=== PATIENT | male | born 1955 | race Caucasian/White ===

== ENCOUNTER 2021-02-24 09:19 | Outpatient (REF) | payer MEDICARE, SELFPAY ==
--- NOTE | 2021-02-24 16:40 | MHC.AU.ANR ---
Adult Audiological Evaluation Date of Visit: 02/24/21 Reason for Appointment: Audiological evaluation due to concern for decreased hearing. Mr. Wilhelm reports a gradual decrease in hearing that he first noticed 5 years ago. He states that he was previously test and diagnosed with hearing loss, and that he had purchased [id number] hearing aids which helped. He notes that he had seen ENT Dr. Fred Harrington ~20 years ago and he noted exostoses in both ears but did not recommend surgery to remove them. Mr. Wilhelm reports constant, bilateral tinnitus that he is typically able to ignore. 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 Does patient feel they have a hearing loss?: Yes If Yes, Which Ear?: Both Ears When Was Hearing Difficulty First Noticed?: ~ 5 years ago Has hearing been tested previously?: Yes Previous Hearing Test Results: [facility], 10 years ago. Results not available for review Hearing Handicap Inventory: HHIE SCORE: 28 Based on HHIE score, patient has: Severe perceived hearing handicap Ear History: Bothersome Tinnitus/Ringing/Noises in Ears: Both Ears Medical History: Medical History (Other): Seasonal allergies Medication List: Irbesartan, doxazosin Otoscopy: Right Ear: Occluding wax removed w/ suction to reveal 3 partially occluding exostoses Left Ear: Clear canal with 1 non-occluding exostosis Tympanometry: Tympanometry performed due to: To assess integrity of the middle ear system Right Ear: Could Not Obtain Seal Left Ear: Normal Middle Ear System (Type A) Hearing Evaluation: Transducer(s) Used: Insert Earphones, Bone Conduction Method: Conventional Audiometry Stimuli Used: Pure Tones Right Ear: Description of Hearing: Normal hearing from 250-3000 Hz, sloping to a moderate sensorineural hearing loss from 9581-1062 Hz. Left Ear: Description of Hearing: Normal hearing from 250-2000 Hz, sloping to a mild to moderate sensorineural hearing loss from 5010-2471 Hz. Hearing in the left ear is 30 dBHL worse than the right ear at 3000 Hz. Speech Recognition Threshold (SRT): Method Used: Monitored Live Voice Stimuli Used: Spondee Words Right Ear: 15 dBHL Left Ear: 10 dBHL Word Discrimination: Method: Recorded Lists Word Lists Used: NU-6 Right Ear: 100% at 60 dBHL Left Ear: 100% at 60 dBHL Recommendations: Audiological re-evaluation in one year. Referral to Ear, Nose, and Throat is recommended due to asymmetric thresholds and significant exostoses in the right ear. Patient is a borderline candidate for amplification and is not interested in pursuing hearing aids at this time. Diagnosis: Primary Diagnosis: H90.3 Bilateral Sensorineural Hearing Loss Secondary Diagnosis: H93.13 Tinnitus, Bilateral Services Performed: Services Performed: Comprehensive Audiological Evaluation (CPT 74730) Tympanometry (CPT 65558) Signature: Provider: Bertin Prasad, CCC-A
== END 2021-02-24 09:20 | disposition home or self-care (01) ==
LOC: HO.SH 09:19
PROVIDERS: Visit Provider Internal Medicine
DX: H90.3 Sensorineural hearing loss, bilateral (principal); H93.13 Tinnitus, bilateral
CPT/HCPCS: 92557; 92567

== ENCOUNTER 2021-02-24 10:28 | Outpatient (REF) | payer SELFPAY | END 2021-02-24 10:29 | disposition home or self-care (01) | LOC: HO.HAP 10:28 | PROVIDERS: Visit Provider Internal Medicine | DX: Z46.1 Encounter for fitting and adjustment of hearing aid (principal); H90.3 Sensorineural hearing loss, bilateral; H61.21 Impacted cerumen, right ear | CPT/HCPCS: 92700 ==

== ENCOUNTER 2023-08-01 06:34 | Day surgery (SDC) | payer MEDICARE, SELFPAY ==
[2023-07-28 10:01] VITALS: BMI 29.6
--- NOTE | 2023-07-31 10:53 | HO.ANESPROP2 ---
Documented by User: Anna Humphreys NP 07/31/23 10:54 HPI - Anesthesia Eval Consult details Narrative: 68yo M for Colonoscopy PMFSH Past Medical History Medical History Enlarged prostate History of anemia Nephrolithiasis HTN (hypertension) Surgical History Surgical History Hx of lithotripsy H/O colonoscopy Social History Social History Patient Tobacco Use Status: Never used Tobacco Use of substances other than those prescribed or required for medical reasons: No Are you DNR?: No Advance Directives: No Advance Directives Information Provided: Yes Meds Allergies Allergy/AdvReac Type Severity Reaction Status Date / Time No Known Allergies Allergy Verified 07/28/23 09:58 Home Medications Medication Instructions Recorded Confirmed Last Taken Type doxazosin 4 mg tablet 4 mg PO DAILY 07/28/23 08/01/23 Unknown History irbesartan 300 mg tablet 300 mg PO DAILY 07/28/23 08/01/23 Unknown History oxybutynin chloride 5 mg 5 mg PO DAILY 07/28/23 08/01/23 Unknown History tablet,extended release 24 hr Exam Height,Weight and Vital Signs: Height 5 ft 8 in Weight 88.451 kg Assessment and Plan Assessment Anesthesia Assessment: Chart Reviewed Documented by User: Katelynn Kirby MD 08/01/23 07:49 [facility] Active Problems Active Problems: Denies JANNA Past Medical History Medical History Enlarged prostate History of anemia Nephrolithiasis HTN (hypertension) Family History Family history of problems with anesthesia: No Surgical History Surgical History Hx of lithotripsy H/O colonoscopy History of Problems with Anesthesia: Yes (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 ) Social History Social History Patient Tobacco Use Status: Never used Tobacco Use of substances other than those prescribed or required for medical reasons: No Are you DNR?: No Advance Directives: No Advance Directives Information Provided: Yes Meds Allergies Allergy/AdvReac Type Severity Reaction Status Date / Time No Known Allergies Allergy Verified 07/28/23 09:58 Home Medications Medication Instructions Recorded Confirmed Last Taken Type doxazosin 4 mg tablet 4 mg PO DAILY 07/28/23 08/01/23 Unknown History irbesartan 300 mg tablet 300 mg PO DAILY 07/28/23 08/01/23 Unknown History oxybutynin chloride 5 mg 5 mg PO DAILY 07/28/23 08/01/23 Unknown History tablet,extended release 24 hr Exam Height,Weight and Vital Signs: Height 5 ft 8 in Weight 88.451 kg Vital Signs Temp Pulse Resp BP Pulse Ox O2 Del Method 08/01/23 06:50 98.1 F 81 15 117/94 H 95 Room Air Airway Mallampati Class: II TM Dist: >3cm Neck ROM: Full Loose/Missing/Broken Teeth: No (Denies broken, loose, missing teeth) Heart: RRR Lungs: CTAB Assessment and Plan Assessment Anesthesia Assessment: Anesthesia Plan Discussed Final Anesthetic Review Family History of Problems with Anesthesia: No History of Problems with Anesthesia: Yes (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
--- OUTSIDE RECORDS SUMMARY | 2023-08-01 06:36 | XMS_ITS | Continuity of Care Document ---
Author Name Unknown Organization 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 [address] [place] [address]- [facility] Allergies, Adverse Reactions, Alerts Substance Reaction Severity Status Mold Ragweed Active Other Environmental Allergy 1 Active 1Pt allergic to [place], [place], [place], [place], [place], [place] and [place] Immunizations Given and Recorded Vaccine Date Status Refusal Reason Influenza Virus Vaccine (oldterm) 1 07/17/19 Recor ded pneumococcal 23-valent vaccine 2 10/08/18 Given influenza virus vaccine, inactivated 06/10/18 Saurabh rded influenza virus vaccine, inactivated 3 05/16/16 Gi devon influenza virus vaccine, inactivated 4 04/12/12 Gi devon Zoster Vaccine Live 5 11/01/16 Given tetanus/diphtheria/pertussis, acel(Tdap) 01/15/13 Given tetanus-diphtheria toxoids (Td) 12/13/04 Given 1Result Comment: Done at [facility] 2Result Comment: [id number] given w/out incident 3Admin Note: done @ work 4Admin Note: given w/ o incident 5Admin Note: done @ [facility] form received Medications doxazosin 4 mg oral tablet 1 tablet = 4 mg, By Mouth, Daily, # 90 tablet, 3 Refills, Maintenance, 01/10/20 13:29:00 EDT, Tablet, [facility]/pharmacy #[id number], increase in dose, 174, cm, 01/15/19 10:13:00 EDT, Height, 86.5, kg, 02/12/18 9:01:00 EDT, Dry Weight Start Date: 01/10/20 Stop Date: 01/04/21 Status: Ordered irbesartan 300 mg oral tablet 1 tablet = 300 mg, By Mouth, Daily, # 30 tablet, 2 Refills, Maintenance, 03/05/20 9:56:00 EDT, Tablet, [id number], temporarily replaces losartan while latter is backordered, 174, cm, 208:36:00 EDT, Height, Dry Weight Start Date: 03/05/20 Status: Ordered Problem List Condition Effective Dates Status Health Status Inform ant Allergic Rhinitis(Confirmed) Active OAB (overactive bladder)(Confirmed) Active Family History of Arthritis (dad)(Confirmed) Active Family history of cardiovasc ular disease (mom)(Confirmed) Active Family history of hypertensi on (mom, sibling)(Confirmed) Active Family history of melanoma (brother)(Confirmed) Active Family history of pancreatic cancer (dad)(Confirmed) Active Family history of premature coronary artery disease (grandfather)(Confirmed) Active Family history of prostate c ancer (brother)(Confirmed) Active Hard of hearing(Confirmed) Active Hx of colonic polyps(Confirmed) 1 04/04/16 Active Hypertension(Confirmed) 1996 Active Kidney stone, right(Confirmed) Active 1tubular adenoma Social History Social History Type Response Smoking Status Never smoker; Tobacc o user in household: No entered on: 12/02/13 Sex
--- OUTSIDE RECORDS SUMMARY | 2023-08-01 06:36 | XMS_ITS | Continuity of Care Document ---
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 Name Role Phone Rafat Cisneros MD Primary Care Physician [facility]counter [facility] Date(s): 10/07/22 - 11/06/22 [facility] [address] [place], [place] [address] Allergies, Adverse Reactions, Alerts No Known Medication Allergies Substance Reaction Severity Status Mold Ragweed Active Other Environmental Allergy 1 Active 1Pt allergic to [place], [place], [place], [place], [place], [place] and [place] Immunizations Given and Recorded Vaccine Date Status Refusal Reason tetanus/diphtheria/pertussis, acel(Tdap) 1 09/14/22 Given tetanus/diphtheria/pertussis, acel(Tdap) 01/15/13 Given Influenza Virus Vaccine (oldterm) 06/09/22 Recorde d Influenza Virus Vaccine (oldterm) 2 07/17/19 Recor ded influenza virus vaccine, inactivated 3 08/09/21 Gi devon influenza virus vaccine, inactivated 4 08/13/20 Re corded influenza virus vaccine, inactivated 06/10/18 Saurabh rded influenza virus vaccine, inactivated 5 05/16/16 Gi devon influenza virus vaccine, inactivated 6 04/12/12 Gi devon zoster vaccine, inactivated 7 07/05/21 Recorded SARS-CoV-2 (COVID-19) mRNA-1273 vaccine 8 07/05/21 Recorded SARS-CoV-2 (COVID-19) mRNA-1273 vaccine 11/11/20 R ecorded SARS-CoV-2 (COVID-19) mRNA-1273 vaccine 10/14/20 R ecorded pneumococcal 23-valent vaccine 9 10/08/18 Given Zoster Vaccine Live 10 11/01/16 Given tetanus-diphtheria toxoids (Td) 5/2/05 Given 1Result Comment: [id number] given w/out incident 2Result Comment: Done at [facility] 3Result Comment: pt. tolerated inj. without complications....[place] 4Result Comment: done @ [facility] 5Admin Note: done @ work 6Admin Note: given w/ o incident 7Result Comment: [facility] 8Result Comment: [facility] 9Result Comment: [id number] given w/out incident 10Admin Note: done @ [facility] form received Medications chondroitin-glucosamine 400 mg-500 mg oral capsule 1 capsule, By Mouth, Daily, # 30 capsule, 0 Refills, Maintenance, 08/09/21 16:34:00 EST, Partial fill upon patient request if the prescription is for a schedule II opioid drug. Start Date: 08/09/21 Stop Date: 09/08/21 Status: Ordered doxazosin 4 mg oral tablet 1 tablet, By Mouth, Daily, # 90 tablet, 1 Refills, Maintenance, 05/03/22 14:53:00 EDT, [facility]/pharmacy#[id number], 174, cm, 03/21/22 16:31:00 EDT, Height Start Date: 05/03/22 Status: Ordered irbesartan 300 mg oral tablet See Instructions, TAKE 1 TABLET BY MOUTH EVERY DAY, # 90 tablet, 2 Refills, Maintenance, 09/08/22 17:14:00 EST, [facility] STORE [id number], 174, cm, 03/21/22 16:31:00 EDT, Height Start Date: 09/08/22 Status: Ordered Neuriva Brain performance Plus Therapeutic Multiple Vitamins oral capsule 1 capsule, By Mouth, Daily, 0 Refills, Maintenance, 08/09/21 16:37:00 EST, Partial fill upon patient request if the prescription is for a schedule II opioid drug. Start Date: 08/09/21 Stop Date: 09/08/21 Status: Ordered oxybutynin 5 mg oral tablet 1 tablet = 5 mg, By Mouth, Daily, PRN for urinary discomfort, # 30 tablet, 0 Refills, Maintenance, 03/21/22 16:40:00 EDT, Tablet, Partial fill upon patient request if the prescription is for a schedule II opioid drug. Start Date: 03/21/22 Stop Date: 04/20/22 Status: Ordered Vitamin D3 5000 intl units oral capsule 1 capsule = 125 mcg, By Mouth, Daily, with food, # 30 capsule, 0 Refills, Maintenance, 09/14/22 13:51:00 EST, Capsule, Partial fill upon patient request if the prescription is for a schedule II opioid drug. Start Date: 09/14/22 Stop Date: 10/14/22 Status: Ordered vitamin E 400 iu oral capsule 1 capsule = 400 International_Units, By Mouth, Daily, # 30 capsule, 0 Refills, Maintenance, 08/09/21 16:32:00 EST, Capsule, Partial fill upon patient request if the prescription is for a schedule II opioid drug. Start Date: 08/09/21 Status: Ordered Problem List Condition Confirmation Course Effective Dates Status H ealth Status Informant Allergic Rhinitis Confirmed Active OAB (overactive bladder) Confirmed Active Family History of Arthritis (dad) Confirmed Active Family history of cardiovascular disease (mom) Confirmed Active Family history of hypertension (mom, sibling) Confirmed Active Family history of melanoma (brother) Confirmed Active Family history of pancreatic cancer (dad) Confirmed Active Family history of premature coronary artery disease (grandfather) Confirmed Active Family history of prostate cancer (brother) Confirmed Active Hard of hearing Confirmed Active Hx of colonic polyps 1 Confirmed 04/04/16 Active Hypertension Confirmed 1995 Active Kidney stone, right Confirmed Active Osteopenia Confirmed 10/13/22 Active 1tubular adenoma Social History Social History Type Response Smoking Status Never smoker; Tobacc o user in household: No entered on: 12/02/13 Sex Patient Care team information Care Team Personnel Name: Rafat Cisneros MD Position: [facility] Primary Care Physician Member Role: PCP Address: Address: [address] [place] [address] Adult & [place] [address]- Care Team Related Persons Name: KORI COLON Address: [address] [place] [address]
--- OUTSIDE RECORDS SUMMARY | 2023-08-01 06:36 | XMS_ITS | Continuity of Care Document ---
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 Role Phone Rafat Cisneros MD Primary Care Physician Encounter [facility] Date(s): 09/14/22 - 09/21/22 [facility] [address] [place], [place] [address] Attending Physician: Rafat Cisneros MD Allergies, Adverse Reactions, Alerts No Known Medication Allergies Substance Reaction Severity Status Mold Ragweed Active Other Environmental Allergy 1 Active 1Pt allergic to [place], [place], El[place], [place], [place], [place]ch and [place] Immunizations Given and Recorded Vaccine Date Status [...] Live 10 11/01/16 Given tetanus-diphtheria toxoids (Td) 12/13/04 Given 1Result Comment: [id number] given w/out incident 2Result Comment: Done at [facility] 3Result Comment: pt. tolerated inj. without complications....[place] 4Result Comment: done @ [facility] 5Admin Note: done @ work 6Admin Note: given w/ o incident 7Result Comment: [facility] 8Result Comment: [facility] 9Result Comment: [id number] given w/out incident 10Admin Note: done @ [facility] form received Medications chondroitin-glucosamine 400 mg-500 [...] tablet, 1 Refills, Maintenance, 05/03/22 14:53:00 EDT, [facility]/pharmacy#1230, 174, cm, 03/21/22 16:31:00 EDT, Height Start Date: 05/03/22 Status: Ordered irbesartan 300 mg oral tablet See Instructions, TAKE 1 TABLET BY MOUTH EVERY DAY, # 90 tablet, 2 Refills, Maintenance, 09/08/22 17:14:00 EST, [facility] STORE 34154, 174, cm, 03/21/22 16:31:00 EDT, Height Start [...] polyps 1 Confirmed 04/04/16 Active Hypertension Confirmed 1996 Active Kidney stone, right Confirmed Active 1tubular adenoma Vital Signs Most recent to oldest [Reference Range]: 1 2 Height 174 cm (09/14/22 2:07 PM) 174 cm (09/14/22 1:41 PM) Weight 87.2 kg (09/14/22 1:41 PM) Oxygen Saturation [94-100 %] 94 % (09/14/22 1:41 PM) Pulse Rate [55-90 bpm] 65 bpm (09/14/22 1:41 PM) Body Mass Index [18.5-24.99 kg/m2] 28.8 kg/m2 *H* (09/14/22 1:41 PM) Blood Pressure [90-138/55-84 mm Hg] 124/ 76mm Hg (09/14/22 2:07 PM) 152/74mm Hg *H* (09/14/22 1:41 PM) Mode of Delivery (Oxygen) Room air (09/14/22 1:41 PM) Blood pressure sites Arm, left (09/14/22 2:07 PM) Arm, left (09/14/22 1:41 PM) Social History Social History Type Response Smoking Status Never smoker; Tobacc o user in household: No entered on: 12/02/13 Sex Note * Jessica Valentino: PERFORM, SIGN, VERIFY Event Display: Patient Education/Instruction Authored Date: [id number] [facility] *[facility] Adult [facility] Clinical Summary Name SUN COLON Age 67 Years 1955 PCP Blayne DUMAS, Rafat PCP Visit Date 09/14/2022 13:23:00 Patient Instructions 1. call [phone] to schedule a bone density study 2. fasting lab work 3. call [facility] for your 5 year colonoscopy ([phone]) 4. keep well hydrated 5. please follow up with Urology for your overactive bladder. Also discuss with them your intermittent symptoms of urgency lasting a day. 6. ??I am glad you took your 2nd Shingrix shot 7. tetanus update today 8. I also recommend you get the Prevnar 20 (pneumonia) shot but you can get it another day. Additional Instructions: Scheduled Appointments?? Future Appointments ?No Future Appointments Scheduled Follow-Up Instructions ?? With: Address: When: Gil Leelo [address] [place] [address] [place] [address] Business (1) Comments: dx: colonoscopy pt to call office Diagnosis Overactive bladder; Encounter for general adult medical examination without abnormal findings; Essential (primary) hypertension Medications: Please continue your medications until treatment is completed or stopped by your provider. Discuss any questions related to medications with your provider. Medications to Continue Taking That Have Changed These medications were not printed or sent to your pharmacy - Cholecalciferol (Vitamin D3 5000 intl units oral capsule) 1 capsule Oral Daily for 30 Days. with food. Refills: 0. Next Dose: Medications to Continue with No Changes These medications were not printed or sent to your pharmacy Chondroitin-Glucosamine (chondroitin-glucosamine 400 mg-500 mg oral capsule) 1 capsule Oral Daily for 30 Days. Refills: 0. Next Dose: Doxazosin (doxazosin 4 mg oral tablet) 1 tab(s) Oral Daily. Refills: 1. Next Dose: Irbesartan (irbesartan 300 mg oral tablet) TAKE 1 TABLET BY MOUTH EVERY DAY. Refills: 2. Next Dose: Multivitamin (Neuriva Brain performance Plus Therapeutic Multiple Vitamins oral capsule) 1 capsule Oral Daily for 30 Days. Next Dose: Oxybutynin (oxybutynin 5 mg oral tablet) 1 tab(s) Oral Daily as needed for urinary discomfort for 30 Days. Next Dose: Vitamin E (vitamin E 400 iu oral capsule) 1 capsule Oral Daily. Next Dose: Allergy Info:?? No Known Medication Allergies; Other Environmental Allergy; Mold Medications Given This Visit Future Orders ?Vitamin D 25 Hydroxy Level? Order Date:09/14/22?- Complete on or after?09/14/22 ?Dexa Bone Density (Axial)? Order Date:09/14/22?- Complete on or after?09/14/22 ?Basic Metabolic Panel? Order Date:09/14/22?- Complete on or after?09/14/22 ?CBC w/ Differential? Order Date:09/14/22?- Complete on or after?09/14/22 ?ALT? Order Date:09/14/22?- Complete on or after?09/14/22 ?AST? Order Date:09/14/22?- Complete on or after?09/14/22 ?Lipid Panel? Order Date:09/14/22?- Complete on or after?09/14/22 Vital Signs Height 174 cm Weight 87.2 kg BMI 28.8 kg/m2 Blood Pressure 124 mm Hg/76 mm Hg Temperature Pulse Rate 65 bpm Respiratory Rate 02 Sat Mode of Delivery 94 %/Room air You can now view a summary of your hospital visit from the comfort of your home through a free online portal called [facility]. [facility] is a website that allows you to securely view your medical information including discharge summary, medications and follow-up visits. ??You can alsosend a secure electronic message to your doctor???s office to request appointments, renew medications or just ask a question. You can enroll at [email or web address] or register during your next office visit. Disclaimer:?? The information provided is of a general nature and is intended to be used in conjunction with the recommendations and advice of your health care practitioner. ??Every effort has been made to ensure that the information provided is accurate and complete at the time it is provided to you however, as your needs change, or, as new ??information becomes available, different or additional instructions may be required. If you have questions, please consult with your primary care provider or pharmacist, as appropriate. ??This information is not intended to serve as substitution for assessment and evaluation by a qualified health care provider. If you do not have a primary care provider, you may find a [facility] provider by calling [facility] at [phone]. For information about the plan of care including goals and instructions for your diagnosis, please see the patient education orders section of this document. Patient Education Materials?? The content of this educational material or handout may have been modified, supplemented, or adapted from its original content and format to support your individualized medical care. Additional Provider Instructions: 1. call [phone] to schedule a bone density study 2. fasting lab work 3. call [facility] for your 5 year colonoscopy ([phone]) 4. keep well hydrated 5. please follow up with Urology for your overactive bladder. Also discuss with them your intermittent symptoms of urgency lasting a day. 6. I am glad you took your 2nd Shingrix shot 7. tetanus update today 8. I also recommend you get the Prevnar 20 (pneumonia) shot but you can get it another day. Patient Care team information Care Team Personnel Name: Rafat Cisneros MD Position: [facility] Primary Care Physician Member Role: PCP Address: Address: [address] [place] [address] Adult & [place] [address]- Care Team Related Persons Name: KORI COLON Address: home [address] [place] [address]
--- OUTSIDE RECORDS SUMMARY | 2023-08-01 06:36 | XMS_ITS | Continuity of Care Document ---
Author Name Unknown Organization [facility] Address [address] [place] [address]- Care Team Providers Care Veneer Matcher Name Role Phone Rafat Cisneros MD Primary Care Physician [facility]): [facility] - 02/05/22 [facility] [address] [place], [place] [address] Attending Physician: Jaspal Velásquez Admitting Physician: Jaspal Velásquez Referring Physician: AdmtrJaspal Allergies, Adverse Reactions, Alerts No Known Medication Allergies Substance Reaction Severity Status Mold Ragweed Active Other Environmental Allergy 1 Active 1Pt allergic to [place], [place], Elm, Maple, [place], Birch and [place] Immunizations Given and Recorded Vaccine Date Status Refusal Reason influenza virus vaccine, inactivated 1 08/09/21 Gi devon influenza virus vaccine, inactivated 2 08/13/20 Re corded influenza virus vaccine, inactivated 06/10/18 Saurabh rded influenza virus vaccine, inactivated 3 05/16/16 Gi devon influenza virus vaccine, inactivated 4 04/12/12 Gi devon zoster vaccine, inactivated 5 07/05/21 Recorded SARS-CoV-2 (COVID-19) mRNA-1273 vaccine 6 07/05/21 Recorded SARS-CoV-2 (COVID-19) mRNA-1273 vaccine 11/11/20 R ecorded SARS-CoV-2 (COVID-19) mRNA-1273 vaccine 10/14/20 R ecorded Influenza Virus Vaccine (oldterm) 7 07/17/19 Recor ded pneumococcal 23-valent vaccine 8 10/08/18 Given Zoster Vaccine Live 9 11/01/16 Given tetanus/diphtheria/pertussis, acel(Tdap) 01/15/13 Given tetanus-diphtheria toxoids (Td) 12/13/04 Given 1Result Comment: pt. tolerated inj. without complications....[place] 2Result Comment: done @ [facility] 3Admin Note: done @ work 4Admin Note: given w/ o incident [facility] Comment: [facility] 7Result Comment: Done at [facility] 8Result Comment: [id number] given w/out incident 9Admin Note: done @ [facility] form received Medications chondroitin-glucosamine 400 mg-500 mg oral capsule 1 capsule, By Mouth, Daily, # 30 capsule, 0 Refills, Maintenance, 08/09/21 16:34:00 EST, Partial fill upon patient request if the prescription is for a schedule II opioid drug. Start Date: 08/09/21 Stop Date: 09/08/21 Status: Ordered doxazosin 4 mg oral tablet See Instructions, TAKE 1 TABLET BY MOUTH EVERY DAY, # 90 tablet, 3 Refills, [facility] STORE 10058, 174, cm, 08/09/21 16:39:00 EST, Height Start Date: 12/14/21 Status: Ordered irbesartan 300 mg oral tablet 1 tablet = 300 mg, By Mouth, Daily, for 90 days, # 90 tablet, 2 Refills, Physician Stop 09/10/22 14:45:00 EST, 12/14/21 14:45:00 EDT, [facility]/pharmacy #1230, 174, cm, 08/09/21 16:39:00 EST, Height Start Date: 12/14/21 Stop Date: 09/10/22 Status: Ordered Neuriva Brain performance Plus Therapeutic Multiple Vitamins oral capsule 1 capsule, By Mouth, Daily, 0 Refills, Maintenance, 08/09/21 16:37:00 EST, Partial fill upon patient request if the prescription is for a schedule II opioid drug. Start Date: 08/09/21 Stop Date: 09/08/21 Status: Ordered Vitamin D3 400 intl units oral capsule 2 capsule = 20 mcg, By Mouth, Daily, 0 Refills, Maintenance, 08/09/21 16:32:00 EST, Partial fill upon patient request if the prescription is for a schedule II opioid drug. Start Date: 08/09/21 Stop Date: 09/08/21 Status: Ordered vitamin E 400 iu oral capsule 1 capsule = 400 International_Units, By Mouth, Daily, # 30 capsule, 0 Refills, Maintenance, 08/09/21 16:32:00 EST, Capsule, Partial fill upon patient request if the prescription is for a schedule II opioid drug. Start Date: 08/09/21 Status: Ordered Problem List Condition Effective Dates [...] of colonic polyps(Confirmed) 1 04/04/16 Active Hypertension(Confirmed) 1995 Active Kidney stone, right(Confirmed) Active 1tubular adenoma Social History Social History Type Response Smoking Status Never smoker; Tobacc o user in household: No entered on: 12/02/13 Sex
--- OUTSIDE RECORDS SUMMARY | 2023-08-01 06:36 | XMS_ITS | Continuity of Care Document ---
Author Name Unknown Organization [facility] Address [address] [place] [address]- Care Team Providers Care Senior Foreman Name Role Phone Blayne DUMAS, Rafat Primary Care Physician [facility]): 02/18/20 - 02/25/20 [facility] [address] [place] [address]- [facility] Attending Physician: Not on Staff, Attending MD Allergies, Adverse Reactions, Alerts Substance Reaction Severity Status Mold Ragweed Active Other Environmental Allergy 1 Active 1Pt allergic to [place], [place], Elm, Maple, [place], Birch and [place] Immunizations Given and Recorded Vaccine Date Status [...] (Td) 12/13/04 Given 1Result Comment: Done at [facility] 2Result Comment: [id number] given w/out incident 3Admin Note: done @ work 4Admin Note: given w/ o incident 5Admin Note: done @ [facility] form received Medications doxazosin 4 mg oral tablet 1 tablet = 4 mg, By Mouth, Daily, # 90 tablet, 3 Refills, Maintenance, 01/10/20 13:29:00 EDT, Tablet, [facility]/pharmacy #1230, increase in dose, 174, cm, 01/15/19 10:13:00 EDT, Height, 86.5, kg, 02/12/18 9:01:00 EDT, Dry Weight Start Date: 01/10/20 Stop Date: 01/04/21 Status: Ordered irbesartan 300 mg oral tablet 1 tablet = 300 mg, By Mouth, Daily, # 30 tablet, 1 Refills, Maintenance, 01/10/20 13:30:00 EDT, Tablet, [facility], temporarily replaces losartan while latter is backordered, 174, cm, 01/15/19 10:13:00 EDT, Height, 86.5, kg, 02/12/18 9:01:00 E... Start Date: 01/10/20 Stop Date: 03/10/20 Status: Ordered Problem List Condition Effective Dates [...] Active Kidney stone, right(Confirmed) Active 1tubular adenoma Vital Signs Most recent to oldest [Reference Range]: 1 Height 174 cm (02/18/20 8:36 AM) Weight 85.9 kg (02/18/20 8:36 AM) Oxygen Saturation [94-100 %] 99 % (02/18/20 8:36 AM) Pulse Rate [55-90 bpm] 74 bpm (02/18/20 8:36 AM) Body Mass Index [18.5-24.99] 28.37 *H* (02/18/20 8:36 AM) Blood Pressure [90-138/55-84 mm Hg] 122/ 74mm Hg (02/18/20 8:36 AM) Temperature [96.8-100.4 DegF] 97.1 DegF (02/18/20 8:36 AM) Mode of Delivery (Oxygen) Room air (7/7/20 8:36 AM) Blood pressure sites Arm, right (02/18/20 8:36 AM) Temperature Route Temporal (02/18/20 8:36 AM) Social History Social History Type Response Smoking Status Never smoker; Tobacc o user in household: No entered on: 12/02/13 Sex
--- OUTSIDE RECORDS SUMMARY | 2023-08-01 06:36 | XMS_ITS | Continuity of Care Document ---
Author Name Unknown Organization [facility] Address [address] [place] [address]- Care Team Providers Care Casing Cooker Name Role Phone Rafat Cisneros MD Primary Care Physician [facility]s): 12/14/22 - 01/13/23 [facility] [address] [place], [place] [address] Allergies, Adverse Reactions, Alerts No Known Medication Allergies Substance Reaction Severity Status Mold Ragweed Active Other Environmental Allergy 1 Active 1Pt allergic to [place], [place], Elm, Maple, [place], Birch and [place] Immunizations Given and Recorded Vaccine Date Status [...] tetanus-diphtheria toxoids (Td) 5/2/05 Given 1Result Comment: [id number] given w/out incident 2Result Comment: Done at [facility] 3Result Comment: pt. tolerated inj. without complications....[place] 4Result Comment: done @ [facility] 5Admin Note: done @ work 6Admin Note: given w/ o incident 7Result Comment: [facility] 8Result Comment: [facility] 9Result Comment: [id number] given w/out incident 10Admin Note: done @ [facility] form received Medications chondroitin-glucosamine 400 mg-500 [...] tablet, 1 Refills, Maintenance, 05/03/22 14:53:00 EDT, [facility]/pharmacy#1230, 174, cm, 03/21/22 16:31:00 EDT, Height Start Date: 05/03/22 Status: Ordered irbesartan 300 mg oral tablet See Instructions, TAKE 1 TABLET BY MOUTH EVERY DAY, # 90 tablet, 2 Refills, Maintenance, 09/08/22 17:14:00 EST, [facility] STORE 85918, 174, cm, 03/21/22 16:31:00 EDT, Height Start [...] Team Personnel Name: Rafat Cisneros MD Position: S Physician - Primary Care Member Role: PCP Address: Address: [address] [place] [address] Adult [place] [address]- Care Team Related Persons Name: KORI COLON Address: home [address] [place] [address]
--- OUTSIDE RECORDS SUMMARY | 2023-08-01 06:36 | XMS_ITS | Continuity of Care Document ---
Author Name Unknown Organization [facility] Address [address] [place] [address]- Care Team Providers Care Attendant Lodging Facilities Name Role Phone Blayne DUAMS, Rafat Primary Care Physician [facility]): 08/19/20 - 09/18/20 [facility] [address] [place], [place] [address] Allergies, Adverse Reactions, Alerts Substance Reaction Severity Status Mold Ragweed Active Other Environmental Allergy 1 Active 1Pt allergic to [place], [place], Elm, Maple, [place], Birch and [place] Immunizations Given and Recorded Vaccine Date Status Refusal Reason influenza virus vaccine, inactivated 1 08/13/20 Re corded influenza virus vaccine, inactivated 06/10/18 Saurabh rded influenza virus vaccine, inactivated 2 05/16/16 Gi devon influenza virus vaccine, inactivated 3 04/12/12 Gi devon Influenza Virus Vaccine (oldterm) 4 07/17/19 Recor ded pneumococcal 23-valent vaccine 5 10/08/18 Given Zoster Vaccine Live 6 11/01/16 Given tetanus/diphtheria/pertussis, acel(Tdap) 01/15/13 Given tetanus-diphtheria toxoids (Td) 12/13/04 Given 1Result Comment: [facility] 2Admin Note: done @ work 3Admin Note: given w/ o incident 4Result Comment: Done at [facility] 5Result Comment: [id number] given w/out incident 6Admin Note: done @ [facility] form received Medications doxazosin 4 mg oral tablet 1 tablet = 4 mg, By Mouth, Daily, # 90 tablet, 3 Refills, Maintenance, 01/10/20 13:29:00 EDT, Tablet, [facility]/pharmacy #1230, increase in dose, 174, cm, 01/15/19 10:13:00 EDT, Height, 86.5, kg, 02/12/18 9:01:00 EDT, Dry Weight Start Date: 01/10/20 Stop Date: 01/04/21 Status: Ordered irbesartan 300 mg oral tablet 1 tablet = 300 mg, By Mouth, Daily, # 90 tablet, 1 Refills, Maintenance, 04/07/20 14:54:00 EDT, Tablet, [facility], temporarily replaces losartan while latter is backordered, 174, cm, 02/18/20 8:36:00 EDT, Height, Dry Weight Start Date: 04/07/20 Status: Ordered Problem List Condition Effective Dates [...]
--- OUTSIDE RECORDS SUMMARY | 2023-08-01 06:36 | XMS_ITS | Continuity of Care Document ---
Author Name Unknown Organization [facility] Address [address] [place] [address]- Care Team Providers Care Electrical Service Technician Name Role Phone Blayne DUMAS, Rafat Primary Care Physician [facility] Date(s): 02/18/20 - 03/19/20 [facility] [address] [place] [address]- [facility] Allergies, Adverse Reactions, Alerts Substance Reaction Severity Status Mold Ragweed Active Other Environmental Allergy 1 Active 1Pt allergic to [place], [place], Elm, Maple, [place], Birch and [place] Immunizations Given and Recorded Vaccine Date Status [...] (Td) 12/13/04 Given 1Result Comment: Done at [facility] 2Result Comment: [id number] given w/out incident 3Admin Note: done @ work 4Admin Note: given w/ o incident 5Admin Note: done @ [facility] form received Medications doxazosin 4 mg oral tablet 1 tablet = 4 mg, By Mouth, Daily, # 90 tablet, 3 Refills, Maintenance, 01/10/20 13:29:00 EDT, Tablet, [facility]/pharmacy #1230, increase in dose, 174, cm, 01/15/19 [...]
--- OUTSIDE RECORDS SUMMARY | 2023-08-01 06:36 | XMS_ITS | Continuity of Care Document ---
Author Name Unknown Organization [facility] Address [address] [place] [address]- Care Team Providers Care Cooperage Shop Supervisor Name Role Phone Rafat Cisneros MD Primary Care Physician [facility] Date[facility]s): 04/21/23 - 05/21/23 [facility] [address] [place], [place] [address] [[email or web address]] Allergies, Adverse Reactions, Alerts No Known Medication Allergies Substance Reaction Severity Status Mold Ragweed Active Other Environmental Allergy 1 Active 1Pt allergic to [place], [place], Elm, Maple, [place], Birch and [place] Immunizations Given and Recorded Vaccine Date Status [...] tetanus-diphtheria toxoids (Td) 5/2/05 Given 1Result Comment: [id number] given w/out incident 2Result Comment: Done at [facility] 3Result Comment: pt. tolerated inj. without complications....[place] 4Result Comment: done @ [facility] 5Admin Note: done @ work 6Admin Note: given w/ o incident 7Result Comment: [facility] 8Result Comment: [facility] 9Result Comment: [id number] given w/out incident 10Admin Note: done @ [facility] form received Medications chondroitin-glucosamine 400 mg-500 mg oral capsule 1 capsule, By Mouth, Daily, # 30 capsule, 0 Refills, Maintenance, 08/09/21 16:34:00 EST, Partial fill upon patient request if the prescription is for a schedule II opioid drug. Start Date: 08/09/21 Stop Date: 09/08/21 Status: Ordered doxazosin 4 mg oral tablet 1 tablet, By Mouth, Daily, # 90 tablet, 1 Refills, Maintenance, 01/30/23 8:34:00 EDT, [facility]/pharmacy #1230, 174, cm, 09/14/22 14:07:00 EST, Height Start Date: 01/30/23 Status: Ordered Hearing evaluation (audiology) Hearing evaluation (audiology), See Instructions, # 1 each, Refills 0, Tot. Refills 0, Maintenance,Evaluate and treat Dx: H90.0, 04/21/23 17:51:00 EDT, Supply Start Date: 04/21/23 Status: Ordered irbesartan 300 mg oral tablet See Instructions, TAKE 1 TABLET BY MOUTH EVERY DAY, # 90 tablet, 2 Refills, Maintenance, 09/08/22 17:14:00 EST, [facility] STORE 53517, 174, cm, 03/21/22 16:31:00 EDT, Height Start [...] Team Personnel Name: Rafat Cisneros MD Position: [facility] Physician - Primary Care Member Role: PCP Address: Address: [address] [place] [address] Adult [place] [address]- Care Team Related Persons Name: KORI COLON Address: [address] [place] [address]
--- OUTSIDE RECORDS SUMMARY | 2023-08-01 06:36 | XMS_ITS | Continuity of Care Document ---
Author Name Unknown Organization [facility] [place] Address [address] [place] [address]- Care Team Providers Care Three Dimensional Map Modeler Name Role Phone Rafat Cisneros MD Primary Care Physician Encounter [facility] Date(s): 11/04/22 - 12/04/22 [facility] [place] [address] [place], [place] [address] Attending Physician: Admtr, Jaspal Admitting Physician: Admtr, Ar8 Referring Physician: Admtr, Ar8 Allergies, Adverse Reactions, Alerts No Known Medication Allergies Substance Reaction Severity Status Mold Ragweed Active Other Environmental Allergy 1 Active 1Pt allergic to [place], [place], Elm, Maple, [place], Birch and [place] Immunizations Given and Recorded Vaccine Date Status [...] 11/11/20 R ecorded SARS-CoV-2 (COVID-19) mRNA-1273 vaccine 3/3/21 R ecorded pneumococcal 23-valent vaccine 9 10/08/18 Given Zoster Vaccine Live 10 11/01/16 Given tetanus-diphtheria toxoids (Td) 12/13/04 Given 1Result Comment: [id number] given w/out incident 2Result Comment: Done at [facility] 3Result Comment: pt. tolerated inj. without complications....[place] 4Result Comment: done @ [facility] 5Admin Note: done @ work 6Admin Note: given w/ o incident 7Result Comment: [facility] 8Result Comment: [facility] 9Result Comment: [id number] given w/out incident 10Admin Note: done @ [facility] form received Medications chondroitin-glucosamine [...] tablet, 1 Refills, Maintenance, 05/03/22 14:53:00 EDT, [facility]/pharmacy#1230, 174, cm, 03/21/22 16:31:00 EDT, Height Start Date: 05/03/22 Status: Ordered irbesartan 300 mg oral tablet See Instructions, TAKE 1 TABLET BY MOUTH EVERY DAY, # 90 tablet, 2 Refills, Maintenance, 09/08/22 17:14:00 EST, [facility] STORE 33650, 174, cm, 03/21/22 16:31:00 EDT, Height Start [...] Team Personnel Name: Rafat Cisneros MD Position: [facility] Primary Care Physician Member Role: PCP Address: Address: [address] [place] [address] Adult [place] [address]- Care Team Related Persons Name: KORI COLON Address: [address] [place] [address]
--- OUTSIDE RECORDS SUMMARY | 2023-08-01 06:36 | XMS_ITS | Continuity of Care Document ---
Author Name Unknown Organization [facility] Address [address] [place] [address]- Care Team Providers Care Hair Sample Matcher Name Role Phone Rafat Cisneros MD Primary Care Physician [facility] 08[facility]21 - 08/16/21 [facility] [address] [place], [place] [address] Attending Physician: Rafat Cisneros MD Allergies, Adverse Reactions, Alerts No Known Medication Allergies Substance Reaction Severity Status Mold Ragweed Active Other Environmental Allergy 1 Active 1Pt allergic to [place], [place], Elm, Maple, [place], Birch and [place] Immunizations Given and Recorded Vaccine Date Status [...] inj. without complications....[place] 2Result Comment: done @ [facility] 3Admin Note: done @ work 4Admin Note: given w/ o incident [facility] 7Result Comment: Done at [facility] 8Result Comment: [id number] given w/out incident 9Admin Note: done @ [facility] form received Medications chondroitin-glucosamine 400 mg-500 mg oral capsule 1 capsule, By Mouth, Daily, # 30 capsule, 0 Refills, Maintenance, 08/09/21 16:34:00 EST, Partial fill upon patient request if the prescription is for a schedule II opioid drug. Start Date: 08/09/21 Stop Date: 09/08/21 Status: Ordered doxazosin 4 mg oral tablet 1 tablet = 4 mg, By Mouth, Daily, # 90 tablet, 3 Refills, Maintenance, 01/04/21 13:29:00 EDT, Tablet, [facility]/pharmacy #1230, increase in dose, 174, cm, 02/18/20 8:36:00 EDT, Height Start Date: 01/04/21 Stop Date: 12/30/21 Status: Ordered irbesartan 300 mg oral tablet 1 tablet, By Mouth, Daily, # 30 tablet, 3 Refills, [facility] STORE 26501, 174, cm, 02/18/20 8:36:00 EDT, Height Start Date: 07/11/21 Status: Ordered Neuriva Brain performance Plus Therapeutic [...] [Reference Range]: 1 2 Height 174 cm (08/09/21 4:39 PM) 174 cm (08/09/21 4:14 PM) Weight 83.6 kg (08/09/21 4:14 PM) Oxygen Saturation [94-100 %] 97 % (08/09/21 4:14 PM) Pulse Rate [55-90 bpm] 71 bpm (08/09/21 4:14 PM) Body Mass Index [18.5-24.99] 27.61 *H* (08/09/21 4:14 PM) Blood Pressure [90-138/55-84 mm Hg] 124/ 68mm Hg (08/09/21 4:39 PM) 138/78mm Hg (08/09/21 4:14 PM) Temperature [96.8-100.4 DegF] 98.4 DegF (08/09/21 4:14 PM) Blood pressure sites Arm, left (08/09/21 4:14 PM) Temperature Route Temporal (08/09/21 4:14 PM) Weight Obtained Via Standing scale (08/09/21 4:14 PM) Social History Social History Type Response Smoking Status Never smoker; Tobacc o user in household: No entered on: 12/02/13 Sex
--- OUTSIDE RECORDS SUMMARY | 2023-08-01 06:36 | XMS_ITS | Continuity of Care Document ---
Author Name Unknown Organization [facility] Address [address] [place] [address]- Care Team Providers Care Office Analyst Name Role Phone Rafat Cisneros MD Primary Care Physician [facility]): 06/14/23 - 07/14/23 [facility] [address] [place], [place] [address] Allergies, Adverse Reactions, Alerts No Known Medication Allergies Substance Reaction Severity Status Mold Ragweed Active Other Environmental Allergy 1 Active 1Pt allergic to [place], [place], Elm, Maple, [place], Birch and [place] Immunizations Given and Recorded Vaccine Date Status [...] tetanus-diphtheria toxoids (Td) 12/13/04 Given 1Result Comment: [id number] given w/out incident 2Result Comment: Done at [facility] 3Result Comment: pt. tolerated inj. without complications....[place] 4Result Comment: done @ [facility] 5Admin Note: done @ work 6Admin Note: given w/ o incident 7Result Comment: [facility] 8Result Comment: [facility] 9Result Comment: [id number] given w/out incident 10Admin Note: done @ [facility] form received Medications chondroitin-glucosamine 400 mg-500 mg [...] tablet, 1 Refills, Maintenance, 01/30/23 8:34:00 EDT, [facility]/pharmacy #1230, 174, cm, 09/14/22 14:07:00 EST, Height Start Date: 01/30/23 Status: Ordered Hearing evaluation (audiology) Hearing evaluation (audiology), See Instructions, # 1 each, Refills 0, Tot. Refills 0, Maintenance,Evaluate and treat Dx: H90.0, 04/21/23 17:51:00 EDT, Supply Start Date: 04/21/23 Status: Ordered irbesartan 300 mg oral tablet See Instructions, TAKE 1 TABLET BY MOUTH EVERY DAY, # 90 tablet, 0 Refills, Maintenance, 06/14/23 20:52:00 EDT, [facility]/pharmacy #1230, 174, cm, 09/14/22 14:07:00 EST, Height Start Date: 06/14/23 Status: Ordered Neuriva Brain performance Plus Therapeutic [...] Team Personnel Name: Rafat Cisneros MD Position: [facility] Physician - Primary Care Member Role: PCP Address: Address: [address] [place] [address] Adult [place] [address]- Care Team Related Persons Name: KORI COLON Address: home [address] [place] [address]
--- OUTSIDE RECORDS SUMMARY | 2023-08-01 06:36 | XMS_ITS | Continuity of Care Document ---
Author Name Unknown Organization [facility] Address [address] [place] [address]- Care Team Providers Care Public Speaking Instructor Name Role Phone Rafat Cisneros MD Primary Care Physician [facility] 02[facility] - 03/19/20 [facility] [address] [place] [address]- [facility] Attending Physician: Jaspal Velásquez Admitting Physician: AdmJaspal jimenes Referring Physician: AdmtrJaspal Allergies, Adverse Reactions, Alerts Substance Reaction Severity Status Mold Ragweed Active Other Environmental Allergy 1 Active 1Pt allergic to [place], [place], Elm, Maple, [place], Birch and [place] Immunizations Given and Recorded Vaccine Date Status [...] (Td) 12/13/04 Given 1Result Comment: Done at [facility] 2Result Comment: [id number] given w/out incident 3Admin Note: done @ work 4Admin Note: given w/ o incident 5Admin Note: done @ [facility] form received Medications doxazosin 4 mg oral tablet 1 tablet = 4 mg, By Mouth, Daily, # 90 tablet, 3 Refills, Maintenance, 01/10/20 13:29:00 EDT, Tablet, [facility]/pharmacy #1230, increase in dose, 174, cm, 01/15/19 [...]
--- OUTSIDE RECORDS SUMMARY | 2023-08-01 06:36 | XMS_ITS | Continuity of Care Document ---
Author Name Unknown Organization [facility] Address [address] [place] [address]- Care Team Providers Care Field Artillery Operations Specialist Name Role Phone Blayne DUMAS, Rafat Primary Care Physician [facility]22 - 02/06/22 [facility] [address] [place], [place] [address] Allergies, Adverse Reactions, Alerts No Known Medication Allergies Substance Reaction Severity Status Mold Ragweed Active Other Environmental Allergy 1 Active 1Pt allergic to [place], [place], Elm, [place], [place], Birch and [place] Immunizations Given and Recorded Vaccine Date Status [...] inj. without complications....[place] 2[facility] 3Admin Note: done @ work 4Admin Note: given w/ o incident [facility] 7Result Comment: Done at [facility] 8Result Comment: [id number] given w/out incident 9Admin Note: [facility] form received Medications chondroitin-glucosamine 400 mg-500 [...] EVERY DAY, # 90 tablet, 3 Refills, [facility] STORE [id number], 174, cm, 08/09/21 16:39:00 EST, Height Start Date: 12/14/21 Status: Ordered irbesartan 300 mg oral tablet 1 tablet = 300 mg, By Mouth, Daily, for 90 days, # 90 tablet, 2 Refills, Physician Stop 09/10/22 14:45:00 EST, 12/14/21 14:45:00 EDT, [facility]/pharmacy #1230, 174, cm, 08/09/21 16:39:00 EST, [...]
--- OUTSIDE RECORDS SUMMARY | 2023-08-01 06:36 | XMS_ITS | Continuity of Care Document ---
Author Name Unknown Organization [facility] Address [address] [place] [address]- Care Team Providers Care Relationship Consultant Name Role Phone Rafat Cisneros MD Primary Care Physician [facility] 03/21/22 - 03/28/22 [facility] [address] [place], [place] [address] Attending Physician: Rafat Cisneros MD Allergies, Adverse Reactions, Alerts No Known Medication Allergies Substance Reaction Severity Status Mold Ragweed Active Other Environmental Allergy 1 Active 1Pt allergic to [place], [place], Elm, [place], [place], Birch and [place] Immunizations Given and Recorded Vaccine Date Status [...] inj. without complications....[place] 2Result Comment: done @ [facility] 3Admin Note: done @ work 4Admin Note: given w/ o incident 5Result Comment: [facility] 6Result Comment: [facility] 7Result Comment: Done at [facility] 8Result Comment: [id number] given w/out incident 9Admin Note: done @ [facility] form received Medications chondroitin-glucosamine 400 mg-500 mg [...] EVERY DAY, # 90 tablet, 3 Refills, [facility] STORE 79954, 174, cm, 08/09/21 16:39:00 EST, Height Start Date: 12/14/21 Status: Ordered irbesartan 300 mg oral tablet 1 tablet = 300 mg, By Mouth, Daily, for 90 days, # 90 tablet, 2 Refills, Physician Stop 09/10/22 14:45:00 EST, 12/14/21 14:45:00 EDT, [facility]/pharmacy #1230, 174, cm, 08/09/21 16:39:00 EST, [...] Stop Date: 04/20/22 Status: Ordered Vitamin D3 400 intl units [...] [Reference Range]: 1 2 Height 174 cm (03/21/22 4:31 PM) 174 cm (03/21/22 4:05 PM) Weight 86.5 kg (03/21/22 4:05 PM) Oxygen Saturation [94-100 %] 96 % (03/21/22 4:05 PM) Pulse Rate [55-90 bpm] 80 bpm (03/21/22 4:05 PM) Body Mass Index [18.5-24.99] 28.57 *H* (03/21/22 4:05 PM) Blood Pressure [90-138/55-84 mm Hg] 120/ 64mm Hg (03/21/22 4:31 PM) 118/70mm Hg (03/21/22 4:05 PM) Blood pressure sites Arm, left (03/21/22 4:05 PM) Social History Social History Type Response Smoking Status Never smoker; Tobacc o user in household: No entered on: 12/02/13 Sex
--- OUTSIDE RECORDS SUMMARY | 2023-08-01 06:36 | XMS_ITS | Continuity of Care Document ---
Author Name Unknown Organization [facility] Address [address] [place] [address]- Care Team Providers Care Napping Machine Operator Name Role Phone Blayne DUMAS, Rafat Primary Care Physician [facility]): 02/17/21 - 03/19/21 [facility] [address] [place], [place] [address] Allergies, Adverse Reactions, Alerts Substance Reaction Severity Status Mold Ragweed Active Other Environmental Allergy 1 Active 1Pt allergic to [place], [place], Elm, Maple, [place], Birch and [place] Immunizations Given and Recorded Vaccine Date Status [...] w/ o incident 4Result Comment: Done at [facility] 5Result Comment: [id number] given w/out incident 6Admin Note: done @ [facility] form received Medications doxazosin 4 mg oral tablet 1 tablet = 4 mg, By Mouth, Daily, # 90 tablet, 3 Refills, Maintenance, 01/04/21 13:29:00 EDT, Tablet, [facility]/pharmacy #1230, increase in dose, 174, cm, 02/18/20 8:36:00 EDT, Height Start Date: 01/04/21 Stop Date: 12/30/21 Status: Ordered irbesartan 300 mg oral tablet 1 tablet = 300 mg, By Mouth, Daily, # 90 tablet, 1 Refills, Maintenance, 11/09/20 7:57:00 EDT, Tablet, [facility], temporarily replaces losartan while latter is backordered, 174, cm, 208:36:00 EDT, Height Start Date: 11/09/20 Status: Ordered Problem List Condition Effective Dates [...]
--- OUTSIDE RECORDS SUMMARY | 2023-08-01 06:36 | XMS_ITS | Continuity of Care Document ---
Author Name Unknown Organization [facility] Address [address] [place] [address]- Care Team Providers Care Bundle Cutter Name Role Phone Rafat Cisneros MD Primary Care Physician [facility]): 10/07/22 - 11/06/22 [facility] [address] [place], [place] [address] Allergies, Adverse Reactions, Alerts No Known Medication Allergies Substance Reaction Severity Status Mold Ragweed Active Other Environmental Allergy 1 Active 1Pt allergic to [place], [place], Elm, Maple, [place], Birch and [place] Immunizations Given and Recorded Vaccine Date Status [...] tetanus-diphtheria toxoids (Td) 12/13/04 Given 1Result Comment: [id number] given w/out incident 2Result Comment: Done at [facility] 3Result Comment: pt. tolerated inj. without complications....[place] 4Result Comment: done @ [facility] 5Admin Note: done @ work 6Admin Note: given w/ o incident 7Result Comment: [facility] 8Result Comment: [facility] 9Result Comment: [id number] given w/out incident 10Admin Note: done @ [facility] form received Medications chondroitin-glucosamine 400 mg-500 [...] tablet, 1 Refills, Maintenance, 05/03/22 14:53:00 EDT, [facility]/pharmacy#1230, 174, cm, 03/21/22 16:31:00 EDT, Height Start Date: 05/03/22 Status: Ordered irbesartan 300 mg oral tablet See Instructions, TAKE 1 TABLET BY MOUTH EVERY DAY, # 90 tablet, 2 Refills, Maintenance, 09/08/22 17:14:00 EST, [facility] STORE 82484, 174, cm, 03/21/22 16:31:00 EDT, Height Start [...] Name: Rafat Cisneros MD Position: [facility] Primary Care Physician Member Role: PCP Address: Address: [address] [place] [address] Adult [place] [address]- Care Team Related Persons Name: KORI COLON Address: [address] [place] [address]
--- OUTSIDE RECORDS SUMMARY | 2023-08-01 06:36 | XMS_ITS | Continuity of Care Document ---
Author Name Unknown Organization [facility] Address [address] [place] [address]- Care Team Providers Care Melter Assistant Name Role Phone Blayne DUMAS, Rafat Primary Care Physician [facility] Date(s): 03/29/22 - 04/28/22 [facility] [address] [place], [place] [address] Allergies, Adverse Reactions, Alerts No Known Medication Allergies Substance Reaction Severity Status Mold Ragweed Active Other Environmental Allergy 1 Active 1Pt allergic to [place], [place], Elm, Maple, [place], Birch and [place] Immunizations Given and Recorded Vaccine Date Status [...] inj. without complications....CO 2Result Comment: done @ [facility] 3Admin Note: done @ work 4Admin Note: given w/ o incident 5Result Comment: [facility] 6Result Comment: [facility] 7Result Comment: Done at [facility] 8Result Comment: [id number] given w/out incident 9Admin Note: done @ [facility] form received Medications chondroitin-glucosamine 400 mg-500 [...] EVERY DAY, # 90 tablet, 3 Refills, [facility] STORE 17821, 174, cm, 08/09/21 16:39:00 EST, Height Start Date: 12/14/21 Status: Ordered irbesartan 300 mg oral tablet 1 tablet = 300 mg, By Mouth, Daily, for 90 days, # 90 tablet, 2 Refills, Physician Stop 09/10/22 14:45:00 EST, 12/14/21 14:45:00 EDT, [facility]/pharmacy #1230, 174, cm, 08/09/21 [...] in household: No entered on: 12/02/13 Sex Care Team Personnel Name: Rafat Cisneros MD Address: [address] [place] [address] Adult [facility] Medicine [address]
--- OUTSIDE RECORDS SUMMARY | 2023-08-01 06:37 | XMS_ITS | Continuity of Care Document ---
Author Name Unknown Organization [facility] Address [address] [place] [address]- Care Team Providers Care Casino Floor Person Name Role Phone Rafat Cisneros MD Primary Care Physician [facility]s): 01[facility]10/20 - 02/09/20 [facility] [address] [place] [address]- [facility] Attending Physician: Jaspal Velásquez Admitting Physician: Jaspal Velásquez Referring Physician: AdmtrJaspal Allergies, Adverse Reactions, Alerts Substance Reaction Severity Status Mold Ragweed Active Other Environmental Allergy 1 Active 1Pt allergic to [place], [place], Elm, Maple, [place], Birch and [place] Immunizations Given and Recorded Vaccine Date Status [...] (Td) 12/13/04 Given 1Result Comment: Done at [facility] 2Result Comment: [id number] given w/out incident 3Admin Note: done @ work 4Admin Note: given w/ o incident 5Admin Note: done @ [facility] form received Medications doxazosin 4 mg oral tablet 1 tablet = 4 mg, By Mouth, Daily, # 90 tablet, 3 Refills, Maintenance, 01/10/20 13:29:00 EDT, Tablet, [facility]/pharmacy #1230, increase in dose, 174, [...]
--- OUTSIDE RECORDS SUMMARY | 2023-08-01 06:37 | XMS_ITS | Continuity of Care Document ---
Author Name Unknown Organization [facility] Address [address] [place] [address]- Care Team Providers Care Glove Cuffer Name Role Phone Blayne DUMAS, Rafat Primary Care Physician [facility]s): 01/01/21 - 01/31/21 [facility] [address] [place], [place] [address] Attending Physician: Jaspal Velásquez Admitting Physician: Jaspal Velásquez Referring Physician: AdmtrJaspal Allergies, Adverse Reactions, Alerts Substance Reaction Severity Status Mold Ragweed Active Other Environmental Allergy 1 Active 1Pt allergic to [place], [place], Elm, Maple, [place], Birch and [place] Immunizations Given and Recorded Vaccine Date [...] w/ o incident 4Result Comment: Done at [facility] 5Result Comment: [id number] given w/out incident 6Admin Note: done @ [facility] form received Medications doxazosin 4 mg oral tablet 1 tablet = 4 mg, By Mouth, Daily, # 90 tablet, 3 Refills, Maintenance, 01/04/21 13:29:00 EDT, Tablet, [facility], increase in dose, 174, cm, 02/18/20 [...]
--- OUTSIDE RECORDS SUMMARY | 2023-08-01 06:37 | XMS_ITS | Continuity of Care Document ---
Author Name Unknown Organization [facility] Address [address] [place] [address]- Care Team Providers Care Pulverizer Operator Name Role Phone Blayne DUMAS, Rafat Primary Care Physician [facility] Date(s): 09/09/21 - 10/09/21 [facility] [address] [place], [place] [address] Allergies, Adverse Reactions, Alerts No Known Medication Allergies Substance Reaction Severity Status Mold Ragweed Active Other Environmental Allergy 1 Active 1Pt allergic to [place], [place], Elm, Maple, [place], Birch and [place] Immunizations Given and Recorded Vaccine Date Status [...] inj. without complications....CO 2Result Comment: done @ [facility] 3Admin Note: done @ work 4Admin Note: given w/ o incident 5Result Comment: [facility] 6Result Comment: [facility] 7Result Comment: Done at [facility] 8Result Comment: [id number] given w/out incident 9Admin Note: done @ [facility] form received Medications chondroitin-glucosamine 400 mg-500 [...] 3 Refills, Maintenance, 01/04/21 13:29:00 EDT, Tablet, [facility]/pharmacy #1230, increase in dose, 174, cm, 02/18/20 8:36:00 EDT, Height Start Date: 01/04/21 Stop Date: 12/30/21 Status: Ordered irbesartan 300 mg oral tablet 1 tablet, By Mouth, Daily, # 30 tablet, 3 Refills, [facility] STORE 51756, 174, cm, 02/18/20 8:36:00 EDT, Height Start [...]
--- OUTSIDE RECORDS SUMMARY | 2023-08-01 06:37 | XMS_ITS | Continuity of Care Document ---
Author Name Unknown Organization [facility] Address [address] [place] [address]- Care Team Providers Care Photonics Engineering Technologist Name Role Phone Rafat Cisneros MD Primary Care Physician [facility] Date(s): 01/10/20 - 01/17/20 [facility] [address] [place] [address]- [facility] Attending Physician: Rafat Cisneros MD Allergies, Adverse Reactions, Alerts Substance Reaction Severity Status Mold Ragweed Active Other Environmental Allergy 1 Active 1Pt allergic to [place], [place], Elm, Maple, [place], Birch and [place] Immunizations Given and Recorded Vaccine Date Status [...] (Td) 12/13/04 Given 1Result Comment: Done at [facility] 2Result Comment: [id number] given w/out incident 3Admin Note: done @ work 4Admin Note: given w/ o incident 5Admin Note: done @ [facility] form received Medications doxazosin 4 mg oral tablet 1 tablet = 4 mg, By Mouth, Daily, # 90 tablet, 3 Refills, Maintenance, 01/10/20 13:29:00 EDT, Tablet, [facility]/pharmacy #1230, increase in dose, 174, cm, [...]
--- OUTSIDE RECORDS SUMMARY | 2023-08-01 06:37 | XMS_ITS | Continuity of Care Document ---
Author Name Unknown Organization [facility] Address [address] [place] [address]- Care Team Providers Care Director Of Provider Relations Name Role Phone Rafat Cisneros MD Primary Care Physician [facility] Date(s): 01/06/22 - 01/13/22 [facility] [address] [place], [place] [address] Attending Physician: Rafat Cisneros MD Allergies, Adverse Reactions, Alerts No Known Medication Allergies Substance Reaction Severity Status Mold Ragweed Active Other Environmental Allergy 1 Active 1Pt allergic to [place], [place], Elm, Maple, [place], Birch and [place] Immunizations Given and Recorded Vaccine Date Status [...] inj. without complications....[place] 2Result Comment: done @ [facility] 3Admin Note: done @ work 4Admin Note: given w/ o incident [facility] Comment: Done at [facility] 8Result Comment: [id number] given w/out incident 9Admin Note: done @ [facility] form received Medications Augmentin 875 mg-125 mg oral tablet 1 tablet, By Mouth, Every 12 hours, for 10 days, with food or milk, # 20 tablet, 0 Refills, Acute 01/16/22 13:28:00 EDT, 01/06/22 13:28:00 EDT, Tablet, [facility]/pharmacy #1230, Partial fill upon patient request if the prescription is for a schedule II opio... Start Date: 01/06/22 Stop Date: 01/16/22 Status: Ordered chondroitin-glucosamine 400 mg-500 mg oral capsule 1 capsule, By Mouth, Daily, # 30 capsule, 0 Refills, Maintenance, 08/09/21 16:34:00 EST, Partial fill upon patient request if the prescription is for a schedule II opioid drug. Start Date: 08/09/21 Stop Date: 09/08/21 Status: Ordered doxazosin 4 mg oral tablet See Instructions, TAKE 1 TABLET BY MOUTH EVERY DAY, # 90 tablet, 3 Refills, [facility] STORE 55909, 174, cm, 08/09/21 16:39:00 EST, Height Start Date: 12/14/21 Status: Ordered irbesartan 300 mg oral tablet 1 tablet = 300 mg, By Mouth, Daily, for 90 days, # 90 tablet, 2 Refills, Physician Stop 09/10/22 14:45:00 EST, 12/14/21 14:45:00 EDT, [facility]/pharmacy #1230, 174, cm, 08/09/21 16:39:00 EST, [...]
--- OUTSIDE RECORDS SUMMARY | 2023-08-01 06:37 | XMS_ITS | Continuity of Care Document ---
Author Name Unknown Organization [facility] Address [address] [place] [address]- Care Team Providers Care Folding Rules Printing Machine Operator Name Role Phone Blayne DUMAS, Rafat Primary Care Physician [facility] Date(s): 02/18/20 - 03/19/20 [facility] [address] [place] [address]- [facility] Allergies, Adverse Reactions, Alerts Substance Reaction Severity Status Mold Ragweed Active Other Environmental Allergy 1 Active 1Pt allergic to [place], [place], Elm, Maple, [place], Birch and [place] Immunizations Given and Recorded Vaccine Date Status [...] 12/13/04 Given 1Result Comment: Done at [facility] 2Result Comment: [id number] given w/out incident 3Admin Note: done @ work 4Admin Note: given w/ o incident 5Admin Note: done @ [facility] form received Medications doxazosin 4 mg oral tablet 1 tablet = 4 mg, By Mouth, Daily, # 90 tablet, 3 Refills, Maintenance, 01/10/20 13:29:00 EDT, Tablet, [facility]/pharmacy #1230, increase in dose, 174, cm, [...]
--- OUTSIDE RECORDS SUMMARY | 2023-08-01 06:37 | XMS_ITS | Continuity of Care Document ---
Author Name Unknown Organization [facility] Address [address] [place] [address]- Care Team Providers Care Wire Brush Operator Name Role Phone Blayne DUMAS, Rafat Primary Care Physician [facility] Date(s): 06/16/21 - 07/16/21 [facility] [address] [place], [place] [address] Allergies, Adverse Reactions, Alerts Substance Reaction Severity Status Mold Ragweed Active Other Environmental Allergy 1 Active 1Pt allergic to [place], [place], Elm, Maple, [place], Birch and [place] Immunizations Given and Recorded Vaccine Date Status Refusal Reason zoster vaccine, inactivated 1 07/05/21 Recorded SARS-CoV-2 (COVID-19) mRNA-1273 vaccine 2 07/05/21 Recorded influenza virus vaccine, inactivated 3 08/13/20 Re corded influenza virus vaccine, inactivated 06/10/18 Saurabh rded influenza virus vaccine, inactivated 4 05/16/16 Gi devon influenza virus vaccine, inactivated 5 04/12/12 Gi devon Influenza Virus Vaccine (oldterm) 6 07/17/19 Recor ded pneumococcal 23-valent vaccine 7 10/08/18 Given Zoster Vaccine Live 8 11/01/16 Given tetanus/diphtheria/pertussis, acel(Tdap) 01/15/13 Given tetanus-diphtheria toxoids (Td) 12/13/04 Given [facility] Comment: [facility] 4Admin Note: done @ work 5Admin Note: given w/ o incident 6Result Comment: Done at [facility] 7Result Comment: [id number] given w/out incident 8Admin Note: done @ [facility] form received Medications doxazosin 4 mg oral tablet 1 tablet = 4 mg, By Mouth, Daily, # 90 tablet, 3 Refills, Maintenance, 01/04/21 13:29:00 EDT, Tablet, [facility]/pharmacy #1230, increase in dose, 174, cm, 02/18/20 8:36:00 EDT, Height Start Date: 01/04/21 Stop Date: 12/30/21 Status: Ordered irbesartan 300 mg oral tablet 1 tablet, By Mouth, Daily, # 30 tablet, 3 Refills, [facility] STORE 79551, 174, cm, 02/18/20 8:36:00 EDT, Height Start Date: 07/11/21 Status: Ordered Problem List Condition Effective Dates [...]
--- OUTSIDE RECORDS SUMMARY | 2023-08-01 06:37 | XMS_ITS | Continuity of Care Document ---
Author Name Unknown Organization [facility] Address [address] [place] [address]- Care Team Providers Care Pearl Diver Name Role Phone Rafat Cisneros MD Primary Care Physician Encounter [facility] Date(s): 12/31/20 - 01/31/21 [facility] [address] [place], [place] [address] Attending Physician: Tremaine Daugherty MD Referring Physician: Rafat Cisneros MD Allergies, Adverse Reactions, Alerts Substance Reaction Severity Status Mold Ragweed Active Other Environmental Allergy 1 Active 1Pt allergic to [place], [place], Elm, Maple, [place], Birch and [place] Immunizations Given and Recorded Vaccine Date Status [...] w/ o incident 4Result Comment: Done at [facility] 5Result Comment: [id number] given w/out incident 6Admin Note: [facility] Medications doxazosin 4 mg oral [...]
--- OUTSIDE RECORDS SUMMARY | 2023-08-01 06:37 | XMS_ITS | Continuity of Care Document ---
Author Name Unknown Organization [facility] Address [address] [place] [address]- Care Team Providers Care Brand Executive Name Role Phone Blayne DUMAS, Rafat Primary Care Physician [facility](s): 08/20/21 - 09/19/21 [facility] [address] [place], [place] [address] Allergies, Adverse Reactions, Alerts No Known Medication Allergies Substance Reaction Severity Status Mold Ragweed Active Other Environmental Allergy 1 Active 1Pt allergic to [place], [place], Elm, Maple, [place], Birch and [place] Immunizations Given and Recorded Vaccine Date Status [...] inj. without complications....[place] 2Result Comment: done [facility] 3Admin Note: done @ work 4Admin Note: given w/ o incident 5Result Comment[facility] 6[facility] 7Result Comment: Done at [facility] 8Result Comment: [id number] given w/out incident 9Admin Note: done @ [facility] form received Medications chondroitin-glucosamine 400 mg-500 [...] 3 Refills, Maintenance, 01/04/21 13:29:00 EDT, Tablet, [facility]/pharmacy #1230, increase in dose, 174, cm, 02/18/20 8:36:00 EDT, Height Start Date: 01/04/21 Stop Date: 12/30/21 Status: Ordered irbesartan 300 mg oral tablet 1 tablet, By Mouth, Daily, # 30 tablet, 3 Refills, [facility] STORE 44418, 174, cm, 02/18/20 8:36:00 EDT, Height Start [...]
--- OUTSIDE RECORDS SUMMARY | 2023-08-01 06:37 | XMS_ITS | Patient Health Record ---
Author Name Unknown Organization [facility] Address [address] [place] [id number] Care Team Providers Care Extruder Operator Helper Name Role Phone Rafat Cisneros Primary Care Provider Unavailab Storm Whitmore Jr ALLERGIES No Known Allergies REASON FOR REFERRAL No Information MEDICATIONS Medication SIG (Take, Route, Frequency, Duration) Notes Start Date End Date Status oxyBUTYnin Chloride ER 5 MG Oral for 90 Active MiraLax (colon prep) 17 GM/SCOOP mixed with Gatorade or Crystal Light Orally begin at 5:00 p.m. the day before the procedure for 1 day 05/31/2023 Active Doxazosin Mesylate 4 MG Oral for 90 Active Irbesartan 300 MG TAKE 1 TABLET BY TH EVERY DAY Oral for 90 Active IMMUNIZATIONS Vaccine Route Administration Date Status Comme nts Influenza Unknown 05/24/2022 Administered SOCIAL HISTORY Tobacco Use: Social History Observation Description Date Details (start date - stop date) Never Smoker NA - NA Sex Assigned At : Social History Observation Description Sex Assigned At Unknown Tobacco Use/Smoking Question Answer Notes Patient is a nonsmoker Alcohol Screen Question Answer Notes Did you have a drink containing alcohol in the p ast year? No Points 0 Interpretation Negative PROBLEMS Problem Type ICD Code Onset Dates Problem Status W/U Status Risk SNOMED Code Notes Problem Colon cancer screening (Z12.11) Active confirmed 228056417 Problem Personal history of colonic polyps (Z86.010) Active confirmed 847855136 Problem Encounter for other preprocedural examination (Z01.818) Active confirmed [id number] Encounters Encounter Location Date Provider [place] [facility] [place] [facility] [address] [place] [phone] 08/01/2023 Storm Robbins Jr [facility] [address] [place] [address] 05/31/2023 Storm Robbins Jr Colon cancer screening Z12.11 ; Encounter for other preprocedural examination Z01.818 and Personal history of colonic polyps Z86.010 ASSESSMENTS Encounter Date Diagnosis Assessment Notes Treatment Notes Treatment Clinical Notes 05/31/2023 Colon cancer screening (ICD-10 - Z12.11) Colonoscopy material was printed 05/31/2023 Encounter for other preprocedural examination (ICD-10 - Z01.818) 05/31/2023 Personal history of colonic polyps (ICD-10 - Z86.010) PLAN OF TREATMENT Future Test Test Name Order Date COLONOSCOPY 05/31/2023 Next Appt Details Provider Name:Storm whitfield Jr, 08/01/2023 07:30:00 AM, [address] [facility] , [place], [place], [id number], Insurance Providers Payer Name Payer Address Payer Phone Subscriber Number Group Number Insured Name Patient Relationship to Insured Coverage Start Date Coverage End Date [facility] [address] [place] [address] [id number] [employer] Self - patient is the insured MEDICAL (GENERAL) HISTORY Medical History History ICD Code Hypertension Nephrolithiasis Covent 19 infection 09/04 Colonoscopy 02/28, five-year followup because of prior history of colon polyps Overactive bladder Asthma Surgical History Surgery Date(Month/Year)
--- OUTSIDE RECORDS SUMMARY | 2023-08-01 06:37 | XMS_ITS | Continuity of Care Document ---
Author Name Unknown Organization [facility] Address [address] [place] [address]- Care Team Providers Care Yeast Distiller Name Role Phone Rafat Cisneros MD Primary Care Physician Encounter [facility] Date(s): 10/20/22 - 11/19/22 [facility] [address] [place], [place] [address] Allergies, Adverse Reactions, Alerts No Known Medication Allergies Substance Reaction Severity Status Mold Ragweed Active Other Environmental Allergy 1 Active 1Pt allergic to [place], [place], [place], [place], [place], [place] and [place] Immunizations Given and Recorded Vaccine Date Status [...] tetanus-diphtheria toxoids (Td) 5/2/05 Given 1Result Comment: [id number] given w/out incident 2Result Comment: Done at [facility] 3Result Comment: pt. tolerated inj. without complications....[place] 4Result Comment: done @ [facility] 5Admin Note: done @ work 6Admin Note: given w/ o incident 7Result Comment: [facility] 8Result Comment: [facility] 9Result Comment: [id number] given w/out incident 10Admin Note: done @ [facility] form received Medications chondroitin-glucosamine 400 mg-500 mg [...] tablet, 1 Refills, Maintenance, 05/03/22 14:53:00 EDT, [facility]/pharmacy#[id number], 174, cm, 03/21/22 16:31:00 EDT, Height Start Date: 05/03/22 Status: Ordered irbesartan 300 mg oral tablet See Instructions, TAKE 1 TABLET BY MOUTH EVERY DAY, # 90 tablet, 2 Refills, Maintenance, 09/08/22 17:14:00 EST, [id number], 174, cm, 03/21/22 16:31:00 EDT, Height Start [...] Team Personnel Name: Rafat Cisneros MD Position: [facility] Primary Care Physician Member Role: PCP Address: Address: [address] [place] [address] Adult & [place] [address]- Care Team Related Persons Name: KORI COLON Address: [address] [place] [address]
[2023-08-01 06:44] VITALS: BMI 29.2
[2023-08-01 06:50] VITALS: BP 117/94; PULSE 81; RESP 15; TEMP 36.7; O2SAT 95
[2023-08-01] MEDS: Lactated Ringers 1,000 ML 100 ML IVCONT (07:03)
--- NOTE | 2023-08-01 07:36 | P.HPSUR_ITS ---
Pre-Procedural Eval Section A Date of Service: 08/01/23 Section B Chief Complaint: screening Details of Present Illness: see H&P no changes Relevant Social History: None Present Medications: see Short Stay Collaborative assessment Medical History: No relevant PMH Allergies: Allergies Allergy/AdvReac Type Severity Reaction Status Date / Time No Known Allergies Allergy Verified 07/28/23 09:58 Review of Systems Sugical H&P ROS: Negative: Constitution, Cardiovascular, Respiratory, N eurological, Psychiatric, Hem-Onc, Allergic/Immunologic, Gastrointestinal, Genitourinary, Musculoskeletal, Integumentary, Endocrine and Eyes/Ears/Nose/Throat Exam Surgical H&P Exam: Normal: HEENT, Normal: Heart, Normal: Lungs, Normal: Extremities, Normal: Abdomen, Normal: Skin and Normal: Neurological Plan Diagnosis/Plan: Unchanged I have reviewed the history and physical and performed a pertinent physical examination on my patient. No changes have occurred unless specified. Time Spent With Patient Time: Total time managing care of this patient today ____ minutes.
[2023-08-01 08:17] VITALS: BP 102/51; PULSE 57; RESP 16; TEMP 36.4; O2SAT 98
[2023-08-01 08:32] VITALS: BP 110/60; PULSE 58; RESP 16; O2SAT 98
--- NOTE | 2023-08-01 08:37 | OP_ITS ---
DATE OF SERVICE: 08/01/2023 SURGEON: Storm Robbins MD INDICATIONS: Colon cancer screening and prior history of adenomatous colon polyps. PREOPERATIVE DIAGNOSIS: POSTOPERATIVE DIAGNOSIS: PROCEDURE PERFORMED: Colonoscopy to the terminal ileum with snare polypectomy. ESTIMATED BLOOD LOSS: COMPLICATIONS: ANESTHESIA: Monitored anesthesia care. ASSISTANTS: SPECIMENS: DESCRIPTION OF PROCEDURE: A history and physical performed. The risks and benefits of the procedure explained to the patient. Informed consent was obtained. The patient was placed in the left lateral decubitus position. A digital rectal exam was performed and was found to be normal. The Olympus pediatric videocolonoscope was introduced into the rectum and advanced to the cecum. The cecum was identified by transillumination, palpation, and identification of ileocecal valve. Examination was performed. The scope was removed. He tolerated the procedure well and was taken to Recovery in stable condition. FINDINGS: The terminal ileum was normal. The visualized colonic mucosa was normal. The quality of the prep was good. Two polyps were identified, both measured less than 10 mm. These were removed with a cold snare. The polyps were located in the rectum and at 70 cm. No other polyps were identified. Retroflexed examination showed small internal hemorrhoids. The quality of prep was good. IMPRESSION: Colon polyps. RECOMMENDATION: Follow up the biopsy results. MD TY Cordon/BARBARA / [id number]
[2023-08-01 08:46] VITALS: BP 133/74; PULSE 65; RESP 16; TEMP 36.6; O2SAT 98
== END 2023-08-01 09:02 | disposition home or self-care (01) ==
PROVIDERS: PCP Internal Medicine; Visit Provider Internal Medicine Gastroenterology
PROC: 0DJD8ZZ Inspection of Lower Intestinal Tract, Via Natural or Artificial Opening Endoscopic (ICD-10-PCS; CPT 45378; principal; 2023-08-01 07:30)
DX: Z12.11 Encounter for screening for malignant neoplasm of colon (principal); D12.8 Benign neoplasm of rectum; K63.5 Polyp of colon; Z86.010 Personal history of colon polyps; I10 Essential (primary) hypertension; D64.9 Anemia, unspecified; Z79.899 Other long term (current) drug therapy; K64.8 Other hemorrhoids
CPT/HCPCS: 45385; 88305; J2704

== ENCOUNTER 2024-05-14 11:37 | Outpatient (REF) | payer MEDICARE, SELFPAY ==
--- NOTE | ~2024-05-14 | XR_ITS ---
EXAMINATION: XR CHEST CLINICAL INFORMATION: Fever. Cough. COMPARISON: None available. TECHNIQUE: 2 views of the chest were obtained. FINDINGS: No significant abnormality is noted involving the heart, lungs, mediastinum, or soft tissues. Mild degenerative changes of the spine. XR/XR chest 2V IMPRESSION: Unremarkable examination. Electronically signed by: Xander Grant MD 05/14/2024 01:37 PM EDT RP
[2024-05-14 12:36] LABS: Basophils Percent Auto 0.6 % (0-2); Eosinophils Percent Auto 0.3 % (0-4); Hematocrit 38.7 % (42.0-52.0); Hemoglobin 13.6 g/dl (14.0-18.0); Lymphocytes Absolute Auto 0.8 X10*3/uL (1.2-4.9); Lymphocytes Percent Auto 22.8 % (20-40); MANUAL DIFF FLAG SCAN; Mean Corpuscular HGB Conc 35.1 g/dl (31.0-36.0); Mean Corpuscular Hemoglobin 30.5 pg (27.0-33.0); Mean Corpuscular Volume 86.8 fL (80.0-98.0); Mean Platelet Volume 10.7 fL (9.4-12.4); Monocytes Absolute Auto 0.5 X10*3/uL (0.1-1.2); Monocytes Percent Auto 14.4 % (2-11); Neutrophils Absolute Auto 2.1 x10*3/uL (2.0-8.3); Neutrophils Percent Auto 61.9 % (45-73); Platelet Count 127 X10*3/uL (160-400); Red Blood Count 4.46 X10*6/uL (4.60-5.80); Red Cell Distribution Width 12.6 % (11.0-16.0); SCAN SMEAR FLAG 1; White Blood Count 3.3 X10*3/uL (4.8-10.8)
[2024-05-14 12:48] LABS: Alanine Aminotransferase 30 U/L (0-40); Albumin Level 3.9 g/dL (3.5-5.0); Alkaline Phosphatase 65 U/L (39-117); Anion Gap 13 (12-20); Aspartate Amino Transferase 25 U/L (5-37); Bilirubin Direct 0.2 mg/dL (0.0-0.5); Bilirubin Total 0.8 mg/dL (0.0-1.0); Blood Urea Nitrogen 12 mg/dL (9-16); Calcium 9.1 mg/dL (8.4-10.2); Carbon Dioxide 25 mmol/L (22-29); Chloride 107 mmol/L (96-108); Estimated Glomerular Filt Rate > 60; Glucose Random 113 mg/dL (60-115); Potassium 3.7 mmol/L (3.3-5.1); Sodium 141 mmol/L (135-145); Total Protein 6.8 g/dL (6.5-8.0)
[2024-05-14 13:50] LABS: SLIDE REVIEW VERIFIED
[2024-05-16 22:33] LABS: A. Phagocytphilium DNA,RT-PCR DETECTED (NOT DETECTED); Babesia Microti DNA, RT-PCR NOT DETECTED (NOT DETECTED); Borrelia Miyamotoi,DNA RT-PCR NOT DETECTED (NOT DETECTED); E.Chaffeensis DNA RT-PCR NOT DETECTED (NOT DETECTED); Lyme(Borrelia ssp)DNA RT-PCR NOT DETECTED (NOT DETECTED)
== END 2024-05-14 11:38 | disposition home or self-care (01) ==
LOC: HO.XRAY 11:37
PROVIDERS: PCP Internal Medicine; Visit Provider Internal Medicine
DX: R50.9 Fever, unspecified (principal); R51.9 Headache, unspecified; R05.9 Cough, unspecified
CPT/HCPCS: 36415; 71046; 80048; 80076; 85025; 87468; 87469; 87478; 87484; 87798